=== PATIENT | male | born 1975 | race Caucasian/White ===

== ENCOUNTER 2019-06-02 18:10 | Emergency (ER) | payer MEDICAID, SELFPAY ==
--- NOTE | 2019-06-02 18:13 | W.ED.GENAD ---
Discharge Plan Disposition Patient Disposition: HOME Condition: Improving Discharge Details Chief Complaint: Trauma Clinical Impression: Concussion, Acute sprain of ligament of neck Primary Care Provider: Saumya Fernandez V ED Provider: Mario Marlow Home Meds and New Rx's Prescriptions: Continued cephalexin 500 MG capsule 500 mg PO QID Qty: 40 RF: 0 trazodone 100 mg Tablet 100 mg PO DAILY RF: 0 buprenorphine-naloxone [Suboxone] 12-3 mg Film 20 film sublingual DAILY RF: 0 Discharge Instructions Instructions: Concussion (ED) Additional Instructions: You were seen in the emergency department today for evaluation of injuries from a fall. You likely have a concussion. There is no evidence of bleeding in the brain or neck fracture or collapsed lung. Take ibuprofen and Tylenol every 6 hours as needed for discomfort. Return to the emergency department immediately if you develop any fevers, weakness, passing out, or for any other concerning or worsening symptoms at all. Medical Decision Making 43-year-old male presents to the emergency department with chief complaint of fall from a ladder more than 48 hours ago. He will need a CT scan of his head, neck, chest x-ray. He will then be reevaluated. CT of the brain, cervical spine did not show any acute abnormalities. Patient therefore will be discharged home. He has no pneumothorax on chest x-ray. He was given return precautions and discharge instructions and agrees with outpatient treatment plan. HPI This patient is a 43-year-old male who complains of neck pain and left back pain after a fall. He fell over 48 hours ago. He fell about 4 to 6 feet from a ladder. He states that he hit his head, neck, complains of left back pain specifically when he takes a deep breath. No abdominal pain. He denies loss of consciousness. No vomiting or other recent illness such as a fever or cough. Nothing has made him feel better. Movement makes it worse. Taking a deep breath makes it worse. It is a sharp pain. No numbness. General Date/Time Provider Initiated Documentation: 06/02/19 18:12. Related Data Home Medications Medication Instructions Recorded Confirmed cephalexin 500 mg PO QID #40 capsule 09/09/13 buprenorphine-naloxone [Suboxone] 20 film SUBLINGUAL DAILY 06/02/19 06/02/19 trazodone 100 mg PO DAILY 06/02/19 06/02/19 Previous Rx's Medication Instructions Recorded cephalexin 500 mg PO QID #40 capsule 09/09/13 Allergies Allergy/AdvReac Type Severity Reaction Status Date / Time No Known Allergies Allergy Unverified 06/02/19 18:20 Review of Systems Narrative: Gen: no fevers. Card: no chest pain. Resp: difficulty breathing. Abd: no vomiting, abd pain. The rest of the 10 point review of systems is negative except as described in the HPI and above in the ROS. [facility] Medical History ADHD (Acute) Anxiety with somatization (Acute) Chronic back pain (Acute) DDD (degenerative disc disease) (Acute) HTN (hypertension), benign (Acute) Hyperlipidemia, acquired (Acute) Family History Father Alcohol abuse Hypertension Cancer Mother Alcohol abuse Hypertension Thyroid disorder Social History Smoking/Tobacco Use Status: Current every day Alcohol Intake: former Year quit: 2015 Drug use: Current Sobriety Substance use type: marijuana, crack/cocaine, heroin and opiates Details: History of IV Drug Use Adopted: No Caregiver/Support person: No Foster care: No Do you need help understanding health information?: Often Sexually active: Yes Do you think of yourself as: straight/heterosexual Current gender identity: male Exam Narrative Exam Narrative: Gen: no acute distress, alert. Eyes: Pupils equal, reactive to light, EOMs intact. ENT: nose and ears normal, posterior pharynx without injection or swelling. Neck: midline tenderness. Lung: Clear to auscultation bilaterally, no respiratory distress. Back: no midline tenderness. left paraspinal tenderness. Card: RRR, normal S1, S2, no M/R/G. 2+ radial pulses bilaterally. Abd: soft, non-tender, no hepatosplenomegaly. Upper extremity: no evidence of trauma. Lower extremity: no edema. Neuro: speech normal, no gross motor deficits. Psych: alert and oriented to person, place time, normal affect. Skin: warm, intact.
[2019-06-02 18:17] VITALS: BP 141/91; PULSE 82; RESP 16; TEMP 36.9; O2SAT 100
--- NOTE | 2019-06-02 18:20 | DI.CT_ITS ---
EXAM: CT HEAD CERVICAL SPINE WO CLINICAL HISTORY: fall off ladder. TECHNIQUE: Noncontrast. COMPARISON: No exams were available for comparison FINDINGS: HEAD: No intracranial hemorrhage or skull fracture is seen. The ventricles are normal in size. There is bilateral basal ganglia calcification, left greater than right. There is some mucous retention in the left maxillary sinus. C SPINE: There is no evidence of fracture or subluxation. Degenerative changes are noted in the disc s. The alignment appears normal. The airway appears intact. No pneumothorax is seen at the lung apice s. IMPRESSION: No acute abnormality. Degenerative disc changes. No acute abnormality.
--- NOTE | 2019-06-02 18:45 | DI.RAD_ITS ---
EXAM: XR CHEST 2V PA LATERAL INDICATION: fall off ladder.. COMPARISON: No exams were available for comparison TECHNIQUE: 2D digital imaging was performed. FINDINGS: Heart size is normal. The lungs are clear. No pneumothorax or rib fracture is seen. Spine appears intact. IMPRESSION: Negative chest x-ray
--- NOTE | 2019-06-02 18:52 | DI.VRAD_ITS ---
PROCEDURE INFORMATION: Exam: CT Head Without Contrast Exam date and time: 06/02/2019 6:39 PM Clinical history: 43 years old, male; Injury or trauma; Fall; Initial encounter; Blunt trauma (contusions or hematomas) TECHNIQUE: Imaging protocol: Computed tomography of the head without contrast. Other technique: STROKE PROTOCOL was implemented. COMPARISON: No relevant prior studies available. FINDINGS: Brain: Normal. No hemorrhage. Unremarkable white matter. No mass effect. Ventricles: Normal. No ventriculomegaly. Bones/joints: Unremarkable. No acute fracture. Sinuses: Moderate mucosal thickening in the left maxillary sinus. Mastoid air cells: Visualized mastoid air cells are well aerated. Soft tissues: Unremarkable. IMPRESSION: No acute abnormality. ASSESSMENT: ASPECTS (Jenny Stroke Program Early CT Score) is 10. PROCEDURE INFORMATION: Exam: CT Cervical Spine Without Contrast Exam date and time: 06/02/2019 6:39 PM Clinical history: 43 years old, male; Injury or trauma; Fall; Initial encounter; Blunt trauma (contusions or hematomas) TECHNIQUE: Imaging protocol: Computed tomography images of the cervical spine without contrast. COMPARISON: No relevant prior studies available. FINDINGS: Vertebrae: There is reversal of normal cervical lordosis. No acute fracture or dislocation. Discs/Spinal canal/Neural foramina: There is moderate multilevel central spinal stenosis, secondary to disc buldge/osteophytic spurring. Soft tissues: Unremarkable. Lungs: Lung apices are normal. IMPRESSION: No acute abnormality. Dictated and Authenticated by: Lindy Cuevas MD. Ordering:PEDRO Martin MD
--- NOTE | 2019-06-02 18:52 | DI.VRAD_ITS ---
PROCEDURE INFORMATION: Exam: XR Chest, 2 Views Exam date and time: 06/02/2019 6:45 PM Clinical history: 43 years old, male; Other: Fall of ladder TECHNIQUE: Imaging protocol: XR of the chest Views: 2 views. COMPARISON: No relevant prior studies available. FINDINGS: Lungs: Unremarkable. No consolidation. Pleural space: Unremarkable. No pleural effusion. No pneumothorax. Heart/Mediastinum: Unremarkable. No cardiomegaly. Bones/joints: Unremarkable. IMPRESSION: No acute abnormality. Dictated and Authenticated by: Lindy Cuevas MD. Ordering:PEDRO Martin MD
[2019-06-02 19:10] VITALS: BP 126/80; PULSE 74; RESP 20; TEMP 37; O2SAT 96
== END 2019-06-02 19:20 | disposition home or self-care (01) ==
PROVIDERS: Emergency Provider Emergency Medicine; PCP Family Medicine
DX: S13.9XXA Sprain of joints and ligaments of unspecified parts of neck, initial encounter (principal); S06.0X0A Concussion without loss of consciousness, initial encounter; W11.XXXA Fall on and from ladder, initial encounter; I10 Essential (primary) hypertension
CPT/HCPCS: 99284; 70450; 71046; 72125; L0172

== ENCOUNTER 2019-07-07 14:03 | Emergency (ER) | payer MEDICAID, SELFPAY ==
[2019-07-07 14:05] VITALS: BP 144/88; PULSE 87; RESP 20; TEMP 36.8; O2SAT 99
[2019-07-07] MEDS: Albuterol HFA 8 GM 60 PUFF INH IH (14:35)
[2019-07-07] MEDS: Dexamethasone 4 MG TAB 8 MG PO (14:35)
--- NOTE | 2019-07-07 14:37 | ED.GENADUL_ITS ---
Discharge Plan Disposition Patient Disposition: HOME Condition: Stable Discharge Details Chief Complaint: RespSymp Clinical Impression: Bronchitis Primary Care Provider: Saumya Fernandez V ED Provider: Alcides Blackwell Home Meds and New Rx's Prescriptions: New dexamethasone [dexamethasone] 4 MG tablet 8 mg PO DAILY Qty: 4 RF: 0 No Action trazodone 100 mg Tablet 100 mg PO DAILY PRNRF: 0 buprenorphine-naloxone [Suboxone] 12-3 mg Film sublingual DAILY RF: 0 Discharge Instructions Instructions: Acute Bronchitis (ED) Additional Instructions: 1. Drink plenty of fluids. 2. Continue all medications as prescribed. 3. Acetaminophen 1000mg every 4 hours (up to 5 time a day) and/or ibuprofen 600mg every 6 hours as needed for fever or pain. 4. Albuterol 2 to 4 puffs every 4 hours as needed for difficulty breathing/cough. 5. Decadron 8 mg once a day for 2 days starting tomorrow. Return to the Emergency Department (ED) if your condition worsens, does not improve as expected, or for ANY other concerns. Specifically, return if you have new or uncontrolled pain, worsening fever, difficulty breathing, vomiting, or are unable to drink fluids. Medical Decision Making 43-year-old gentleman with past medical history of hypertension, anxiety, chronic back pain, and regular tobacco abuse. Presents with 4 days of cough, mild pharyngitis, congestion, and dyspnea. Had more significant dyspnea 2 days prior to presentation but has persistent mild symptoms since. Nonfocal exam except for faint expiratory wheezing. Discussed likely viral/inflammatory etiology. Treated in the ED with albuterol and oral dexamethasone. Discharged with the same. Given usual and customary return instructions prior to discharge. Medical Records Medical records reviewed: Yes I reviewed the patient's medical records. HPI 43-year-old gentleman with past medical history which includes ADHD, chronic back pain, and regular tobacco use. Presents with increased cough, congestion, and mild dyspnea. He had more significant dyspnea 2 days ago but still has some mild dyspnea with exertion. Symptoms are worse when he is outside in the cold air. Denies fever/chills, hemoptysis, chest pain, palpitations. He has had no significant abdominal pain or atypical lower extremity pain or swelling. He smokes tobacco daily but denies a history of albuterol or steroid use. General Date/Time Provider Initiated Documentation: 07/07/19 14:27 . Related Data Home Medications Medication Instructions Recorded Confirmed buprenorphine-naloxone [Suboxone] film SUBLINGUAL DAILY 06/02/19 06/02/19 trazodone 100 mg PO DAILY PRN 06/02/19 07/07/19 dexamethasone 8 mg PO DAILY #4 tab 07/07/19 Previous Rx's Medication Instructions Recorded dexamethasone 8 mg PO DAILY #4 tab 07/07/19 Allergies Allergy/AdvReac Type Severity Reaction Status Date / Time No Known Allergies Allergy Unverified 06/02/19 18:20 General Stated Complaint: RespSymp TRISTA: 4 Review of Systems All systems reviewed & are unremarkable except as noted in HPI and below PFSH Medical History ADHD (Acute) Anxiety with somatization (Acute) Chronic back pain (Acute) DDD (degenerative disc disease) (Acute) HTN (hypertension), benign (Acute) Hyperlipidemia, acquired (Acute) Family History Father Alcohol abuse Hypertension Cancer Mother Alcohol abuse Hypertension Thyroid disorder Social History Smoking/Tobacco Use Status: Current every day Alcohol Intake: former Year quit: 2015 Drug use: Current Sobriety Substance use type: marijuana, crack/cocaine, heroin and opiates Details: History of IV Drug Use Adopted: No Caregiver/Support person: No Foster care: No Do you need help understanding health information?: Often Sexually active: Yes Do you think of yourself as: straight/heterosexual Current gender identity: male Do you feel safe at home: Yes Do you feel safe in your relationship?: Yes Exam Narrative Exam Narrative: Nursing note and vital signs have been reviewed and noted. GENERAL: alert, active, no acute distress, well -hydrated, well-nourished HEENT: atraumatic/normocephalic, PERRLA, EOMI, conjunctiva clear, external ears/canals normal, nasal mucosa normal NECK: supple, full range of motion, no mass, normal lymphadenopathy, no thyromegaly CARDIOVASCULAR: RRR, no murmurs, nl pulses, no edema PULMONARY: nl effort, no audible wheezing or stridor, nl breath sounds with no focal deficit. no chest wall tenderness ABDOMEN: soft, non-tender, non-distended, no mass, no organomegaly EXTREMITY: normal muscle tone, all joints with FROM, no deformity or tenderness SKIN: no exanthem appreciated NEURO: gross motor exam normal, normal stance and gait PSYCH: alert and oriented, Course Vital Signs Vital signs: Vital Signs Temperature 98.2 F 07/07/19 14:05 Pulse 87 07/07/19 14:05 Respiratory Rate 20 07/07/19 14:05 Blood Pressure 144/88 H 07/07/19 14:05 Pulse Oximetry 99 07/07/19 14:05 Temperature 98.2 F 07/07/19 14:05 Temperature Source Skin 07/07/19 14:05 Pulse 87 07/07/19 14:05 Respiratory Rate 20 07/07/19 14:05 Respiratory Effort Non-Labored 07/07/19 14:14 Respiratory Depth Normal 07/07/19 14:14 Blood Pressure 144/88 H 07/07/19 14:05 Blood Pressure Position Sitting 07/07/19 14:05 Pulse Oximetry 99 07/07/19 14:05 Oxygen Delivery Method Room Air 07/07/19 14:05 Oxygen Flow Rate 0 07/07/19 14:05 Pain Level 6 07/07/19 14:05
== END 2019-07-07 14:35 | disposition home or self-care (01) ==
PROVIDERS: Emergency Provider Emergency Medicine; PCP Family Medicine
DX: J20.9 Acute bronchitis, unspecified (principal); I10 Essential (primary) hypertension
CPT/HCPCS: 94640; 99283; J8540

== ENCOUNTER 2020-06-09 08:36 | Outpatient (CLI) | payer MEDICAID, SELFPAY ==
--- NOTE | 2020-06-09 08:45 | RT.EKG_ITS ---
APPROVED REPORT Exam: Resting ECG Patient Location: O HR:71 bpm ECG Measurements Heart Rate 71 AXIS NE 159 P 44 QRSd 92 QRS 73 QT 445 T 53 QTc 482 Conclusion Sinus rhythm...normal P axis, V-rate 60- 99 Normal Electrocardiogram
== END 2020-06-09 08:56 ==
PROVIDERS: PCP Family Medicine; Visit Provider Family Medicine
DX: Z79.899 Other long term (current) drug therapy (principal); Z13.6 Encounter for screening for cardiovascular disorders
CPT/HCPCS: 93005; 93010

== ENCOUNTER 2021-04-30 00:44 | Outpatient (CLI) | payer MEDICAID, SELFPAY ==
[2021-04-30 13:03] LABS: ALT 45 U/L (16-63); AST 26 U/L (15-37); Albumin 3.5 g/dL (3.4-5.0); Alkaline Phosphatase 80 U/L (46-116); Anion Gap 8.2 mmol/L (3-11); BUN 14 mg/dL (7-18); Bilirubin, Total 0.3 mg/dL (0.2-1.0); CO2 28.8 mmol/L (21.0-32.0); CREATININE 0.7 mg/dL (0.70-1.30); Calcium 8.9 mg/dL (8.5-10.1); Calculated LDL 143 mg/dL (<100); Chloride 104 mmol/L (98-107); Cholesterol 210 mg/dL (<200); Glucose 94 mg/dL (74-106); HDL Cholesterol 43 mg/dL (40-60); Potassium 4.4 mmol/L (3.5-5.1); Sodium 141 mmol/L (136-145); TSH 0.84 uIU/mL (0.36-3.74); Total Protein 7.3 g/dL (6.4-8.2); Triglyceride 122 mg/dL (<150)
[2021-05-03 11:47] LABS: HIV-1/2 Ag & Ab Screen Negative (Negative)
[2021-05-03 12:59] LABS: Hepatitis C Ab w Rflx HCV PCR Reactive (Negative)
[2021-05-03 20:15] LABS: Testosterone, Total 161 ng/dL (240-950)
[2021-05-05 14:26] LABS: HCV RNA Qualitative Undetected (Undetected)
== END 2021-04-30 00:45 | disposition home or self-care (01) ==
LOC: LOS 00:44
PROVIDERS: PCP Internal Medicine; Visit Provider Internal Medicine
DX: Z13.220 Encounter for screening for lipoid disorders; N52.9 Male erectile dysfunction, unspecified; F10.11 Alcohol abuse, in remission; Z11.4 Encounter for screening for human immunodeficiency virus [HIV]; Z11.59 Encounter for screening for other viral diseases; R68.82 Decreased libido
CPT/HCPCS: 36415; 80053; 80061; 84403; 86803; 87389; 87522; 84443

== ENCOUNTER 2021-05-18 16:49 | Outpatient (REF) | payer MEDICAID, SELFPAY ==
[2021-05-20 15:29] LABS: COVID-19 RT-PCR UVMMC Result Negative (Negative)
== END 2021-05-18 16:50 | disposition home or self-care (01) ==
LOC: LBN 16:49
PROVIDERS: PCP Internal Medicine; Visit Provider Internal Medicine
DX: Z20.822 Contact with and (suspected) exposure to COVID-19 (principal); R50.9 Fever, unspecified; R05.8 Other specified cough
CPT/HCPCS: U0003

== ENCOUNTER 2022-05-03 06:00 | Emergency (ER) | payer MEDICAID, SELFPAY ==
[2022-05-03 06:05] VITALS: BP 137/93; PULSE 82; RESP 18; TEMP 36.5; O2SAT 100
--- NOTE | 2022-05-03 06:05 | ED.GENADUL_ITS ---
Discharge Plan Disposition Patient Disposition: HOME Condition: Good Discharge Details Clinical Impression: Cellulitis of foot Primary Care Provider: Tanna Day ED Provider: Kuldeep Escobar [place] Meds and New Rx's Prescriptions: New cephalexin 500 mg tablet 500 mg PO Q8H Qty: 30 0RF No Action methylphenidate HCl [Ritalin] 20 mg tablet 20 mg PO BID Label Comments: 20mg am, noon methylphenidate HCl [Ritalin] 10 mg tablet 10 mg PO QPM omeprazole 20 mg capsule,delayed release(DR/EC) 20 mg PO DAILY Qty: 90 3RF trazodone 100 mg Tablet 100 mg PO DAILY PRN Discharge Instructions Instructions: Cellulitis (ED) Additional Instructions: You were seen in the ED for bilateral foot and ankle swelling with associated pain, redness, warmth which suggest cellulitis despite having it bilaterally. Does not seem to be related to your fall has x-rays of the foot and ankle do not show any fracture, dislocation, foreign body. Please keep your feet elevated over the next few days. We will start you on an antibiotic to see if this improves your symptoms. You may take acetaminophen or ibuprofen for discomfort. Please follow-up with primary care at the end of this week for recheck. You should return to the ED if you develop fever, mental status change, chest pain, shortness of breath, worsening pain/swelling. Referrals: Tanna Day MD [Primary Care Provider] - Medical Decision Making Patient presenting with bilateral foot and ankle pain and swelling that he relates to a fall 2 nights ago. What does not fit is the erythema and warmth to the lateral aspect of both ankles and feet. He denies using heating pad. He has been using ice but not directly. He denies any fever or chills or feeling ill otherwise. He has never had previous joint problems and no history of gout. Prior history of substance abuse but is currently sober and specifically denies IV drug use. Vital signs are reasonable with slightly elevated blood pressure only. He is afebrile and otherwise looks well. We will start with x-rays of both feet and ankle and proceed from there. I do not see any fracture, dislocation or foreign body on his x-rays. Will wait for radiology read prior to discharge but assuming radiology concurs we will plan antibiotic for possible cellulitis given the erythema and warmth though having bilateral foot cellulitis seems improbable this does not appear to be gout or other joint process. Blood glucose here normal. Patient to keep his feet elevated. Use ibuprofen or acetaminophen for pain. Follow-up with primary care end of this week for reevaluation and to see if there is any improvement. Return precautions provided. Medical Records Medical records reviewed: Yes I reviewed the patient's medical records. HPI General Date/Time Provider Initiated Documentation: 05/03/22 06:02 . Limitations to Documentation: no limitations . Information obtained by: patient, RN notes reviewed and old records reviewed . HPI Narrative: Patient presents to ED with bilateral foot and ankle pain and swelling. Patient reports falling off a stepladder and landing awkwardly on both feet for falling to the ground. He had pain in both feet and ankle then but has been able to ambulate to some degree. He reports no head or neck injury, upper extremity injury, chest pain, shortness of breath. Over the last 2 days his feet and ankles have continued to remain swollen and painful with redness and warmth to the lateral aspect of both ankles and feet. He denies any fever or chills. He has never had issues with joint problems in the past. He correlates that all to the fall. He has been using ice packs as well as Epson salt baths. Related Data Home Medications Medication Instructions Recorded Confirmed trazodone 100 mg tablet 100 mg PO DAILY PRN 06/02/19 05/03/22 methylphenidate HCl 10 mg tablet 10 mg PO QPM 04/21/21 05/03/22 (Ritalin) methylphenidate HCl 20 mg tablet 20 mg PO BID 04/21/21 05/03/22 (Ritalin) omeprazole 20 mg capsule,delayed 20 mg PO DAILY #90 tab-caps 04/15/22 05/03/22 release cephalexin 500 mg tablet 500 mg PO Q8H #30 tabs 05/03/22 Previous Rx's Medication Instructions Recorded omeprazole 20 mg capsule,delayed 20 mg PO DAILY #90 tab-caps 04/15/22 release cephalexin 500 mg tablet 500 mg PO Q8H #30 tabs 05/03/22 Allergies Allergy/AdvReac Type Severity Reaction Status Date / Time No Known Allergies Allergy Verified 05/03/22 06:08 General TRISTA: 4 Review of Systems Narrative: 12/11 Review of Systems completed and is negative except as stated above in HPI (Systems reviewed: Const, Resp, CV, GI, Neuro) PFSH All Active Problems (Updated 05/03/22 @ 07:36 by Kuldeep Escobar MD) Cellulitis of foot (Acute) Opiate dependence (Acute) Hepatitis C antibody test positive (Chronic) No detectable virus Hypogonadism, male (Acute) Polysubstance dependence in early, early partial, sustained full, or sustained partial remission (Chronic) cocaine, heroin, rx medication, EtOH H/O ETOH abuse (Chronic) 6 pk/day M-F, 2+ 6 pk/day Sat & Sun. Incarcerated 2018 for repeat DUI Methadone maintenance therapy patient (Chronic) Nicotine dependence (Chronic) 1 ppd Chronic back pain (Acute) Erectile dysfunction (Acute) Low libido (Acute) Hyperlipidemia, acquired (Acute) Anxiety with somatization (Acute) Medical History ADHD HS GERD (gastroesophageal reflux disease) HTN (hypertension), benign Pain management contract agreement [employer] for oxycodone prior to incarceration Family History (Updated 04/22/21 @ 00:21 by Tanna Day MD) Father Alcohol abuse Hypertension Cancer Mother Alcohol abuse Hypertension Thyroid disorder Other HTN (hypertension), benign Social History Smoking/Tobacco Use Status: Current every day Tobacco Type: cigarettes Quit status: has quit before Smoking risk assessment performed?: Yes Alcohol Intake: former Year quit: 2016 Drug use: Current Sobriety Substance use type: marijuana, crack/cocaine, heroin and opiates Details: Occassional marijuana use. History of IV Drug Use Adopted: No Caregiver/Support person: No Foster care: No Household members: significant other and children Housing: house Communication Needs: None Do you need help understanding health information?: Never current occupation: works for [employer] Pets and animals: Yes (2) Pets and animals: dog(s) Sexually active: Yes Do you think of yourself as: straight/heterosexual Current gender identity: male What is your relationship status?: living with partner How often do you talk on the phone with friends or family?: once per week How often do you get together with friends or relatives?: once per week Do you belong to any clubs or organized social groups?: no Panel score (0-1 are the most socially isolated patients): 1 What type of physical activity do you participate in: regular exercise and other Details: physical work with job Heather/Zoroastrianism: [employer] Special heather needs: No Seatbelt use: always 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 HEENT: NC/AT. Normal facial exam. Eyes: Normal conjunctiva and sclera. Neck: Supple. Trachea midline. Lungs: Normal respiratory effort. Cor: RRR. Good distal pulses. Neuro: A+O x 3. Normal speech, mentation, gait. Cranial nerves II - XII grossly intact. No gross motor or sensory deficit. Ext: No C/C. Bilateral foot and ankle swelling. Tenderness mostly to the lateral aspect of both ankles and feet. Normal range of motion of toes. Limited range of motion of ankles though active and passive are present. Neurovascularly intact with good pulses. Skin: Warm and dry with erythema and warmth to both lateral ankle/foot area.
--- NOTE | 2022-05-03 06:15 | DI.RAD_ITS ---
Exam(s) XR FOOT LT COMPLETE EXAM: XR FOOT LT COMPLETE CLINICAL HISTORY: pain swelling; fall from ladder two nights ago. TECHNIQUE: 2D digital imaging was performed. COMPARISON: CR XR FOOT RT COMPLETE from 05/03/2022 FINDINGS: 3 views No evidence of acute fracture or diastasis of the Cathy vince joint. Bone density normal. No osseous lesions nor erosions. There is no radiopaque foreign body. IMPRESSION: No fracture evident. DATA REPOSITORY: RADIATION DOSE DELIVERED:
--- NOTE | 2022-05-03 06:15 | DI.RAD_ITS ---
Exam(s) XR ANKLE RT COMPLETE EXAM: XR ANKLE RT COMPLETE CLINICAL HISTORY: pain swelling; fall from ladder two nights ago. TECHNIQUE: 2D digital imaging was performed. COMPARISON: No exams were available for comparison FINDINGS: 3 views Soft tissue swelling bilaterally but no fracture or widening of the ankle mortise. Talar dome unrema rkable. Mild degenerative changes in the ankle joint. Base of the 5th metatarsal is intact. No oss eous tarsal coalition. IMPRESSION: As above. DATA REPOSITORY: RADIATION DOSE DELIVERED:
--- NOTE | 2022-05-03 06:15 | DI.RAD_ITS ---
Exam(s) XR ANKLE LT COMPLETE EXAM: XR ANKLE LT COMPLETE CLINICAL HISTORY: pain swelling; fall from ladder two nights ago. TECHNIQUE: 2D digital imaging was performed. COMPARISON: CR XR ANKLE RT COMPLETE from 05/03/2022 FINDINGS: 3 views There is soft tissue swelling on both sides of the ankle but no evidence of acute malleolar fracture nor widening of the ankle mortise. Talar dome unremarkable. On the lateral aspect of the foot there is small calcific density off the lateral aspect of the talus. This may be related to a an avulsion fracture at this level. IMPRESSION: The subtle evidence of possible avulsion fracture off the lateral aspect of the talus. DATA REPOSITORY: RADIATION DOSE DELIVERED:
--- NOTE | 2022-05-03 06:15 | DI.RAD_ITS ---
Exam(s) XR FOOT RT COMPLETE EXAM: XR FOOT RT COMPLETE CLINICAL HISTORY: pain swelling; fall from ladder two nights ago. TECHNIQUE: 2D digital imaging was performed. COMPARISON: No exams were available for comparison FINDINGS: 3 views No evidence of fracture or diastasis of the Lisfranc joint. Bone density normal. No osseous lesions. No erosions. No radiopaque foreign body. Bipartite media l hallucal sesamoid bone incidentally noted. IMPRESSION: No fractures evident. DATA REPOSITORY: RADIATION DOSE DELIVERED:
--- NOTE | 2022-05-03 08:29 | ED.PROG_ITS ---
Date of service: 05/03/22 Time of Service: 08:30 Medical Decision Making patients left ankle xray read as possible talus avulsion fracture. He is fully moving his ankle and can bear weight though with pain. doubt fracture but will refer to ortho for assessment. He is stable for d/c, return precautions given Discharge Plan Disposition Patient Disposition: HOME Condition: Good Discharge Details Clinical Impression: Cellulitis of foot, Avulsion fracture of left talus Primary Care Provider: Tanna Day ED Provider: Kuldeep Escobar [place] Meds and New Rx's Prescriptions: New cephalexin 500 mg tablet 500 mg PO Q8H Qty: 30 0RF prednisone 20 mg tablet 60 mg PO DAILY 5 Days Qty: 15 0RF No Action methylphenidate HCl [Ritalin] 20 mg tablet 20 mg PO BID Label Comments: 20mg am, noon methylphenidate HCl [Ritalin] 10 mg tablet 10 mg PO QPM omeprazole 20 mg capsule,delayed release(DR/EC) 20 mg PO DAILY Qty: 90 3RF trazodone 100 mg Tablet 100 mg PO DAILY PRN Discharge Instructions Instructions: Cellulitis (ED) Additional Instructions: You were seen in the ED for bilateral foot and ankle swelling with associated pain, redness, warmth which suggest cellulitis despite having it bilaterally. Does not seem to be related to your fall has x-rays of the foot and ankle do not show any fracture, dislocation, foreign body. Please keep your feet elevated over the next few days. We will start you on an antibiotic to see if this improves your symptoms. You may take acetaminophen or ibuprofen for discomfort. Please follow-up with primary care at the end of this week for recheck. You should return to the ED if you develop fever, mental status change, chest pain, shortness of breath, worsening pain/swelling. call orthopedics for an appointment Referrals: Tanna Day MD [Primary Care Provider] - Rudy Raza MD [ [facility] STAFF PHYSICIAN] -
--- NOTE | 2022-05-03 10:24 | DI.VRAD_ITS ---
PROCEDURE INFORMATION: Exam: XR Left Ankle Exam date and time: 05/03/2022 6:39 AM Age: 46 years old Clinical indication: Ankle; Left; Patient HX: Pain and swelling. Fell from ladder landing on feet 2 nights ago TECHNIQUE: Imaging protocol: Radiologic exam of the Left ankle. Views: 3 or more views. COMPARISON: No relevant prior studies available. FINDINGS: Bones/joints: No acute fracture or dislocation is identified. The ankle mortise is preserved on these nonstressed views. Soft tissues: There is mild generalized soft tissue swelling. IMPRESSION: Mild generalized soft tissue swelling without acute fracture or dislocation identified. May consider follow-up in 7 to 10 days or correlation with MRI if symptoms persist. Dictated and Authenticated by: Mahin Joseph MD. Ordering:TASHI Light MD
--- NOTE | 2022-05-03 10:26 | DI.VRAD_ITS ---
PROCEDURE INFORMATION: Exam: XR Left Foot Exam date and time: 05/03/2022 6:42 AM Age: 46 years old Clinical indication: Foot; Left; Patient HX: Pain and swelling. Fell from ladder landing on feet 2 nights ago TECHNIQUE: Imaging protocol: Radiologic exam of the Left foot. Views: 3 or more views. COMPARISON: CR XR ANKLE LT COMPLETE 05/03/2022 6:39 AM FINDINGS: Bones/joints: There is an ossific density in the region between the lateral aspect of the navicular and the proximal medial aspect of the cuboid, potentially representing a fracture fragment from either of these bones. No other fracture is identified. The joint spaces are normally aligned. 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 Soft tissues: There is mild soft tissue swelling about the foot and ankle. IMPRESSION: Ossific density between the navicular and proximal cuboid, potentially a fracture fragment from either of these bones. May consider further characterization with CT. Dictated and Authenticated by: Mahin Joseph MD. Ordering:TASHI Light MD
--- NOTE | 2022-05-03 10:27 | DI.VRAD_ITS ---
PROCEDURE INFORMATION: Exam: XR Right Ankle Exam date and time: 05/03/2022 6:34 AM Age: 46 years old Clinical indication: Ankle; Left; Patient HX: Pain and swelling. Fell from ladder landing on feet 2 nights ago TECHNIQUE: Imaging protocol: Radiologic exam of the Right ankle. Views: 3 or more views. COMPARISON: No relevant prior studies available. FINDINGS: Bones/joints: No acute fracture or dislocation is identified. The ankle mortise is preserved on these nonstressed views. There is mild osteophyte formation off the tips of the medial and lateral malleoli, as well as about the tibiotalar joint. Soft tissues: There is mild generalized soft tissue swelling. IMPRESSION: 1. Mild generalized soft tissue swelling without acute fracture or dislocation identified. May consider follow-up in 7 to 10 days or correlation with MRI if symptoms persist. 2. Degenerative changes as described. Dictated and Authenticated by: Mahin Joseph MD. Ordering:TASHI Light MD
--- NOTE | 2022-05-03 10:28 | DI.VRAD_ITS ---
PROCEDURE INFORMATION: Exam: XR Right Foot Exam date and time: 05/03/2022 6:37 AM Age: 46 years old Clinical indication: Foot; Right; Patient HX: Pain and swelling. Fell from ladder landing on feet 2 nights ago TECHNIQUE: Imaging protocol: Radiologic exam of the Right foot. Views: 3 or more views. COMPARISON: CR XR ANKLE RT COMPLETE 05/03/2022 6:34 AM FINDINGS: Bones/joints: No acute fracture or dislocation is identified. The medial hallux sesamoid is noted to be bipartite. 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 There is mild generalized soft tissue swelling about the ankle and foot. Soft tissues: See Bones/joints finding. IMPRESSION: Mild generalized soft tissue swelling without acute fracture or dislocation identified. May consider follow-up in 7 to 10 days if symptoms persist. Dictated and Authenticated by: Mahin Joseph MD. Ordering:TASHI Light MD
== END 2022-05-03 09:10 | disposition home or self-care (01) ==
PROVIDERS: Emergency Provider Emergency Medicine; PCP Internal Medicine
DX: L03.116 Cellulitis of left lower limb (principal); L03.115 Cellulitis of right lower limb; I10 Essential (primary) hypertension; F17.210 Nicotine dependence, cigarettes, uncomplicated
CPT/HCPCS: 99284; 73610; 73630